=== PATIENT | female | born 1945 | race Caucasian/White ===

== ENCOUNTER 2018-05-29 17:03 | Inpatient (IN) | payer MEDICARE, BC ==
[~2018-05-29] VITALS: Ht 160 cm; Wt 96.5 kg
[2018-05-29] MEDS ORDERED: LORazepam 2 MG/ML VIAL (J2060) IV STA (17:49)
[2018-05-29 17:55] LABS: BASO # 0.1 10^3/uL (0.0-0.2); BASO % 0.3 % (0.0-1.0); EOS # 0.1 10^3/uL (0.0-0.50); EOS % 0.9 % (0.0-3.0); HEMATOCRIT 42.1 % (36.0-47.0); HEMOGLOBIN 13.5 g/dl (12.0-15.5); LYMPH # 2.4 10^3/uL (1.5-4.5); LYMPH % 15.5 % (24.0-44.0); MEAN CORPUSCULAR HEMOGLOBIN 31.5 pg (27.0-33.0); MEAN CORPUSCULAR HGB CONC 32.1 g/dl (32.0-36.5); MEAN CORPUSCULAR VOLUME 98.1 fl (80.0-96.0); MONO # 1.2 10^3/uL (0.0-0.8); MONO % 7.6 % (0.0-5.0); NEUTROPHILS # 11.6 10^3/uL (1.8-7.7); NEUTROPHILS % 74.5 % (36.0-66.0); PLATELET COUNT, AUTOMATED 343 10^3/uL (150-450); RED BLOOD COUNT 4.29 10^6/uL (4.00-5.40); WHITE BLOOD COUNT 15.6 10^3/uL (4.0-10.0)
[2018-05-29 18:10] LABS: ALBUMIN 2.6 GM/DL (3.2-5.2); BILIRUBIN,DIRECT 0.6 MG/DL (0.0-0.2); BILIRUBIN,TOTAL 0.9 MG/DL (0.2-1.0); CALCIUM LEVEL 8.7 MG/DL (8.8-10.2); CREATININE FOR GFR 1.36 MG/DL (0.55-1.30); GLOMERULAR FILTRATION RATE 40.7 (>39); MB/CK RELATIVE INDEX 5.63 (< OR =4); POTASSIUM SERUM 4.3 MEQ/L (3.5-5.1); TOTAL PROTEIN 6.2 GM/DL (6.4-8.2); TROPONIN I 1.18 NG/ML (< 0.10)
[2018-05-29] MEDS ORDERED: ACETAMINOPHEN 650 MG SUPP PR ONE (18:15)
[2018-05-29] MEDS ORDERED: CEFEPIME HCL 2 GM in D5W MINI-BAG PLUS 50 ML IV ONE (18:15)
[2018-05-29] MEDS ORDERED: PROPOFOL 1,000 MG in APPROPRIATE DILUENT 1 EA IV SCH (18:26)
[2018-05-29] MEDS ORDERED: PROPOFOL 1,000 MG/100 ML VIAL As Ordered ONE (18:27)
--- NOTE | 2018-05-29 18:33 | REP ---
Chest one-view HISTORY: Shortness of breath Comparison: None Diffuse parenchymal densities are present in the lungs. The cardiac silhouette is enlarged. The pulmonary vasculature is obscured by the parenchymal densities in the lungs. Impression: Bilateral infiltrates or edema. Electronically Signed by Cleveland Lee MD 05/29/2018 06:25 P
--- NOTE | 2018-05-29 18:36 | REP ---
Chest one-view HISTORY: Post intubation Comparison: 05:54 p.m. 05/29/2018 A diffuse parenchymal densities are present in the lungs. The cardiac silhouette is enlarged. The pulmonary vasculature is obscured by the density in the lungs. An ET tube is present. Impression: 1. Bilateral infiltrates or edema unchanged compared to the previous study. 2. The patient is status post ET tube placement. Electronically Signed by Cleveland Lee MD 05/29/2018 06:27 P
[2018-05-29] MEDS ORDERED: ETOMIDATE INJ 20MG/10ML VIAL IV STA (18:42)
[2018-05-29] MEDS ORDERED: SUCCINYLCHOLINE INJ 200 MG/10 ML VIAL (J0330) IV STA (18:42)
[2018-05-29] MEDS ORDERED: FUROSEMIDE 100 MG/10 ML VIAL (J1940) IV ONE (18:45)
[2018-05-29] MEDS ORDERED: MIDAZOLAM INJ 2 MG/2 ML VIAL (J2250) As Ordered ONE (18:53)
[2018-05-29] MEDS ORDERED: MIDAZOLAM INJ 2 MG/2 ML VIAL (J2250) IV STA (18:53)
[2018-05-29 18:56] LABS: ABG BASE EXCESS -10.4 (-2.0-2.0); ABG HCO3 15.3 MEQ/L (22.0-26.0); ABG PARTIAL PRESSURE CO2 33.8 mmHg (35.0-45.0); ABG PARTIAL PRESSURE O2 119.1 mmHg (75.0-100.0); ABG STANDARD HCO3 16.3 MEQ/L (22.0-26.0); ABG TOTAL CO2 16.4 MEQ/L (23.0-31.0); ABG pH (ARTERIAL) 7.275 UNITS (7.350-7.450)
[2018-05-29] MEDS ORDERED: MORPHINE 4 MG/ML 1ML VIAL/SYRINGE (J2270) IV PRN (19:15)
[2018-05-29] MEDS ORDERED: MIDAZOLAM INJ 2 MG/2 ML VIAL (J2250) IV PRN (19:15)
[2018-05-29] MEDS ORDERED: patient comments (19:38)
[2018-05-29 20:00] VITALS: BP 101/66
[2018-05-29] MEDS ORDERED: COMBIVENT RESPIMAT 100-20MCG INHALER 4GM INH SCH (20:00)
--- NOTE | 2018-05-29 20:31 | HPE ---
CRITICAL CARE HISTORY AND PHYSICAL DATE OF ADMISSION: 05/29/2018 I was called urgently to the emergency room to attend the bedside of this critically ill patient. CRITICAL CARE TIME: 1 hour and 12 minutes. HISTORY OF PRESENT ILLNESS: On arrival the patient was intubated, sedated on propofol. She had a sinus tachycardia with left bundle branch block, occasional bouts of heart block for approximately 4 to 5 beats. According to her she was having 5 days of coughing, respiratory symptoms, was taking R[place] and Tylenol at home to treat the cold. He states she has never seen physicians over the past few years. She states she has known there is been something wrong as far as her breathing. However, she did not see and did not want to see any physicians. The family is not really sure when the lower extremity swelling that is found on exam started. Other than that no other new symptoms. For some time she has been having urinary stress incontinence and she is an active smoker. On arrival to the emergency room she was febrile and hypoxic. She was unkempt with skin breakdown in the vaginal, buttock and sacral area. No deep ulcerations. She was initially awake, alert and oriented, but had such difficulty breathing that ultimately she had respiratory failure. Laboratory evaluation revealed a lactic acidosis. There was concern for probable infection. Chest x-ray shows significant bilateral dense infiltrates consistent with pneumonia. While in the emergency room there was some concern due to the severity of her systemic edema that she could actually be in heart failure, especially due to the fact that her troponin was slightly elevated and she has a BNP of 19,000. Therefore she was given Lasix at the time rather than IV fluids. Upon my arrival blood pressure was fairly soft 99/63. Heart rate was 130, sinus tachycardia with occasional complete heart block. The patient's family expressed wishes for her to be full resuscitation including CPR. HOME MEDICATOINS: She takes no chronic all medications. ALLERGIES: She has no drug allergies. VACCINATIONS: She has had no vaccinations. PAST SURGICAL HISTORY: Only surgery and medical history that the family is aware of is knee surgery 20 years ago. SOCIAL HISTORY; Lives with . Smoked for over 50 years. FAMILY HISTORY: Mother had lung and heart disease. REVIEW OF SYSTEMS: Unobtainable. PHYSICAL EXAMINATION: Temperature is 101.7, pulse of 118-113, blood pressure 99/63, mean arterial pressure 75, oxygen saturation is 96% on 0.30 FIO2, respiratory rate is 30. General: The patient is sedated on mechanical ventilation, has no purposeful movement at this time. However nursing tells me that she had significant purposeful movement and required the additional sedation. HEENT: Sclerae clear, anicteric. Pupils are approximately 5 mm, symmetric and reactive to light. Mucous membranes are moist. Tongue is midline. Endotracheal tube is in place. Neck: Supple. There is evidence of hirsutism, acanthosis nigricans. Lymph: No cervical, supraclavicular or axillary adenopathy. Cardiac: Distant S1, S2 without audible murmur, rub or gallop. She is tachycardiac. Point of maximal impulse (PMI) is difficult to palpate due to body habitus. There is significant peripheral pitting edema of the lower extremity up to the mid thigh. Bilateral lower extremity swelling is symmetric. Pulmonary: Decreased breath sounds throughout without rales, rhonchi or wheezes. No accessory muscle use. Fair chest expansion. Abdomen is obese, soft, nontender, nondistended. No hepatosplenomegaly. No masses or hernia. Extremities: Pitting edema as mentioned above. She has mottling of her lower extremities, mostly just to the level of the ankle. LABS: Arterial blood gas shows a pH of 7.27, pCO2 of 34, pAO2 of 119. EKG shows a left bundle branch block. Repeat urinalysis is pending. White blood cell count is 15.6, hemoglobin 13.5, platelet count of 343 with 75% neutrophilia. Sodium is 142, potassium 4.3, chloride is 104, bicarb of 17, creatinine of 1.36, calcium 8.7. D bili is 0.6, troponin 1.18, BNP of 19,000, D-dimer greater than 4000, albumin is 2.6. Chest x-ray consistent with multifocal pneumonia, bilateral dense infiltrates and cardiomegaly. AST is at 40, ALT of 28. Lactate is elevated 8.8. IMPRESSION: 1. Acute respiratory failure likely secondary to pneumonia. Will continue on mechanical ventilation. Obtain sputum culture to ensure adequate coverage. She has never been in the hospital, therefore will cover for "community-acquired pneumonia with cephalosporin and azithromycin. 2. Sepsis with lactic acidosis, likely septic shock with renal impairment. I actually believe she will likely need fluid despite her elevated BNP. She does have systemic edema. However, she also has some protein malnourishment. Will obtain echocardiogram as I suspect there is likely dysfunction, especially given the left bundle branch block. Elevated troponin likely secondary to acute shock and it is not clear whether or not she is having an acute WA or whether the troponin leak is simply secondary to sepsis and decreased oxygen delivery. 3. Protein malnourishment. 4. Acute renal injury. 5. Leukocytosis. 6.. DVT prophylaxis with heparin as she has obesity and renal impairment. 7. GI prophylaxis with Protonix. 8. Advance directives discussed with the patient's and two daughters. They wish everything to be done to attempt to save the patient's life.
[2018-05-29 21:00] VITALS: BP 102/46
[2018-05-29] MEDS ORDERED: AZITHROMYCIN INJ 500 MG, VIAL MATE ADAPTER 1 EACH in D5W 250 ML IV SCH (21:00)
--- NOTE | 2018-05-29 21:01 | RO ---
DATE OF PROCEDURE: 05/29/2018 PROCEDURE: Right triple lumen central venous catheter. PREPROCEDURE DIAGNOSIS: Hypotension. POSTPROCEDURE DIAGNOSIS: Hypotension. PROCEDURIST: Nathan Gordon DO CERTIFIED RECREATIONAL THERAPIST: None. ANESTHESIA: 1% lidocaine instilled subcutaneously. Verbal consent was obtained by the in the emergency room. Risks of bleeding, infection, pneumothorax and injury to surrounding structures was discussed. He states that he understands the risks and wants to proceed. DESCRIPTION OF PROCEDURE After informed consent was obtained the patient was identified with two patient identifiers confirming correct site, correct procedure. Right IJ was then prepped and draped in a sterile manner with chlorhexidine and full barrier sterile precautions. The right IJ was then identified under ultrasound. 1% lidocaine was instilled subcutaneously above the IJ. Holt syringe was then introduced into the IJ with venous blood return of the first pass. Wire was fed through the needle and the needle was removed. Deandre in the skin was made and the triple-lumen catheter was placed via modified Seldinger technique. The wire was removed and all three ports returned venous blood flow and flushed easily. The catheter was sutured in at 15 cm. A sterile impregnated dressing was placed over the site. Postprocedure chest x-ray performed shows adequate placement without evidence of pneumothorax. No observed complications.
[2018-05-29] MEDS: CHLORHEXIDINE GLUCONATE 0.12 % 15ML UDC (PERIDEX ORAL RINSE) MT SCH (21:17)
[2018-05-29] MEDS: PROPOFOL 1,000 MG in APPROPRIATE DILUENT 1 EA IV SCH (21:18)
[2018-05-29] MEDS ORDERED: NOREPINEPHRINE 4 MG/4 ML AMP As Ordered ONE (21:53)
[2018-05-29 22:00] VITALS: BP 74/51
[2018-05-29] MEDS ORDERED: HEPARIN SOD (PORCINE) 5000 UNITS/ML VIAL SC SCH (22:00)
[2018-05-29] MEDS ORDERED: NOREPINEPHRINE BITARTRATE 8 MG in D5W 492 ML IV SCH (22:00)
--- NOTE | 2018-05-29 22:02 | REP ---
Chest one-view HISTORY: Respiratory failure Comparison: 15 p.m. 05/29/2018 Patchy parenchymal densities are present in the lungs greater on the right than on the left. A small left pleural effusion is present. The cardiac silhouette is enlarged. The pulmonary vasculature is . By the density in the lungs. An ET tube and NG tube are present. Impression: 1. Bilateral infiltrates or edema unchanged compared to the previous study. 2. Cardiomegaly. Electronically Signed by Cleveland Lee MD 05/29/2018 09:53 P
[2018-05-29 22:16] LABS: TROPONIN I 3.18 NG/ML (< 0.10)
[2018-05-29] MEDS ORDERED: HEPARIN DRIP 25,000 UNITS in APPROPRIATE DILUENT 1 EA IV SCH (22:23)
[2018-05-29] MEDS ORDERED: NS 1,000 ML IV ONE (22:30)
[2018-05-29] MEDS ORDERED: HEPARIN SOD (PORCINE) 5000 UNITS/ML VIAL IV PRN (22:30)
[2018-05-29] MEDS ORDERED: HEPARIN SOD (PORCINE) 5000 UNITS/ML VIAL IV ONE (22:30)
[2018-05-29 23:00] VITALS: BP 99/68
[2018-05-29] MEDS: IPRATROPIUM 0.5MG/ALBUTEROL 2.5MG INH SOL UD 3ML (DUONEB)(J7620) NEB SCH (23:50)
[2018-05-29 23:55] VITALS: O2SAT 99
[2018-05-30] VITALS (16 sets, daily range): BP systolic 88–110; BP diastolic 57–66; O2SAT 98
[2018-05-30 05:10] LABS: HEMOGLOBIN 12.3 g/dl (12.0-15.5); MEAN CORPUSCULAR HEMOGLOBIN 31.4 pg (27.0-33.0); MEAN CORPUSCULAR HGB CONC 32.4 g/dl (32.0-36.5); MEAN CORPUSCULAR VOLUME 96.9 fl (80.0-96.0); RED BLOOD COUNT 3.92 10^6/uL (4.00-5.40); WHITE BLOOD COUNT 14.5 10^3/uL (4.0-10.0)
[2018-05-30 05:19] LABS: PLATELET COUNT, AUTOMATED 218 10^3/uL (150-450)
[2018-05-30 05:32] LABS: ALBUMIN 2.4 GM/DL (3.2-5.2); CALCIUM LEVEL 8.2 MG/DL (8.8-10.2); CREATININE FOR GFR 1.72 MG/DL (0.55-1.30); PHOSPHORUS LEVEL 4.8 MG/DL (2.5-4.9); POTASSIUM SERUM 4.3 MEQ/L (3.5-5.1)
[2018-05-30 05:47] LABS: ABG BASE EXCESS -2.5 (-2.0-2.0); ABG O2 SATURATION 99.4 % (95.0-99.0); ABG PARTIAL PRESSURE CO2 28.6 mmHg (35.0-45.0); ABG PARTIAL PRESSURE O2 157.7 mmHg (75.0-100.0); ABG STANDARD HCO3 22.4 MEQ/L (22.0-26.0); ABG TOTAL CO2 20.9 MEQ/L (23.0-31.0); ABG pH (ARTERIAL) 7.463 UNITS (7.350-7.450)
[2018-05-30] MEDS ORDERED: cefTRIAXone SOD 2 GM in D5W 50 ML IV SCH (06:00)
[2018-05-30] MEDS: IPRATROPIUM 0.5MG/ALBUTEROL 2.5MG INH SOL UD 3ML (DUONEB)(J7620) NEB SCH ×2 (07:31→11:43)
--- NOTE | 2018-05-30 08:02 | ECGEPIP ---
Stationary ECG Study [facility] - ED Test Date: 2018-05-29 Pat Name: SULMA FLETCHER Department: Room: - Gender: F Neuroradiologist: roxi : 1945 Requested By: Akbar Kelly Order Number: [id number] Reading MD: Akbar Reagan Measurements Intervals [place] Rate: 129 P: -14 CO: 113 QRS: -30 QRSD: 161 T: 125 QT: 352 QTc: 516 Interpretive Statements SINUS TACHYCARDIA WITH SHORT CO INTERVAL LEFT BUNDLE BRANCH BLOCK NO PRIORS FOR COMPARISON Electronically Signed On 05-30-2018 8:01:58 EST by Akbar Reagan
--- NOTE | 2018-05-30 08:16 | REP ---
Chest one-view HISTORY: Respiratory failure Comparison : 05/29/2018 Patchy densities are present in the lungs that is slightly decreased compared to the previous study. The cardiac silhouette is enlarged. The pulmonary vasculature is normal in appearance. An ET tube , NG tube and central line are present. Impression: Bilateral infiltrates or edema decreased compared to the previous study. Electronically Signed by Cleveland Lee MD 05/30/2018 08:07 A
[2018-05-30] MEDS ORDERED: NYSTATIN 100,000 UNITS/GM TOPICAL PWD 15 GM TOP SCH (09:00)
[2018-05-30] MEDS ORDERED: ASPIRIN 325 MG TAB NG SCH (09:00)
[2018-05-30] MEDS ORDERED: PANTOPRAZOLE 40MG INJ (PROTONIX) (C9113) IV SCH (09:00)
[2018-05-30] MEDS: CHLORHEXIDINE GLUCONATE 0.12 % 15ML UDC (PERIDEX ORAL RINSE) MT SCH (09:11)
[2018-05-30 10:51] LABS: TROPONIN I 14.5 NG/ML (< 0.10)
[2018-05-30] MEDS ORDERED: SUCCINYLCHOLINE 100 MG/5 ML SYRINGE (J0330) ONE (10:53)
[2018-05-30] MEDS ORDERED: ETOMIDATE INJ 20MG/10ML VIAL ONE (10:53)
[2018-05-30] MEDS: PROPOFOL 1,000 MG in APPROPRIATE DILUENT 1 EA IV SCH (11:01)
[2018-05-30 11:05] LABS: MAGNESIUM LEVEL 2.2 MG/DL (1.8-2.4)
--- NOTE | 2018-05-30 11:12 | CCN ---
DATE OF SERVICE: 05/30/2018 Critical care time was 40 minutes, this excludes all procedures. Overnight the patient did have short nonsustained V-tach. Troponin was elevated to 3. Troponin from this morning still pending. It is not clear whether the patient has acute coronary syndrome simply from coronary artery disease are actually has pneumonia that precipitated hypoxia and induced myocardial ischemia. Therefore, she is covered for the possibility of acute coronary syndrome with heparin. She has also had intermittent mottling of the right lower extremity, decreased pulse. Heparin is being administered at this point in time. I do not think she has a surgical candidate, therefore no surgical consult has been performed, and heparin has been prescribed as a potential treatment. Chest x-ray shows some decrease in infiltrates. Sputum culture is pending. The patient is on mechanical ventilation and is at bedside and updated. PHYSICAL EXAMINATION: Temperature is 98.0, pulse is 82, blood pressure is 88/58 with a mean arterial pressure of 68, oxygen saturations 98% on 0.30 FiO2. HEENT: Sclerae clear and anicteric. Pupils equal and reactive to light. Mucous membranes are moist. Tongue is midline. Central lines in place. CVP has not yet been measured this morning. LYMPH: No cervical, supraclavicular or axillary adenopathy. PULMONARY: Decreased breath sounds throughout. There is a prolonged exhalation phase. No accessory muscle use currently. No expiratory wheeze. No dullness to percussion. CARDIAC: Tachycardic S1-S2 without audible murmur, rub or gallop. PMI is difficult to palpate due to body habitus. There is pitting edema of the lower extremities, left greater than right. There is no palpable pulse on the right foot with minimal mottling, but no significant cyanosis. Radial pulses are symmetric. ABDOMEN: Obese, soft, nontender, nondistended. No hepatosplenomegaly, masses or hernia. SKIN: Significant intertrigonal, perineal and buttock candidiasis. There is an open sore that is approximately 25 cm. There does not appear to be any significant induration around the superficial lesion. There is no evidence of cellulitis. There is no evidence of extension to bone. NEUROLOGIC: The patient does awake on mechanical ventilation, has some appropriate movements, attempting to remove the tube, is moving all extremities. Exam is limited due to the fact that she is sedated on mechanical ventilation. Chest x-ray again shows diffuse pulmonary infiltrates, somewhat decreased. White blood cell count is down to 14.5, hemoglobin 12.3, platelet count of 218. Sodium is 142, potassium 4.3, chloride is 108, BUN is 34, creatinine is 1.72, lactate of 2.2, troponin is up to 3.18, pH of 7.46, pCO2 is 29, pAO2 is 158. IMPRESSION: 1. Acute respiratory failure. Unclear if this was precipitated by infection or cardiac disease. We are treating for both. I started heparin overnight for the possibility of acute coronary syndrome monitoring for arrhythmia. The patient did actually have a few episodes of complete heart block when she was initially admitted that lasted for maximum 5 seconds. She will likely need cardiac workup as an outpatient. She may even require cardiac catheterization prior to discharge. Transthoracic echocardiogram ordered. Today monitoring for V-tach. Will check magnesium. 2. Pneumonia. Treating for pneumonia with antibiotics. The patient may have also had urine infection. Awaiting results of microbiology. Covering with typical antibiotics for community acquired pneumonia as the patient has never been hospitalized. 3. Renal impairment. The patient has good urine output this morning. Creatinine is slightly elevated compared to yesterday to 1.72. The patient is at risk for renal failure. 4. Lactic acidosis. Lactate trending down to 2.2. 5. Candidiasis. Nystatin prescribed. 6. Gastrointestinal (GI) prophylaxis on Protonix. 7. Deep vein thrombosis (DVT) prophylaxis on heparin drip. The patient remains critically ill, has a high risk of mortality, especially given underlying cardiac dysfunction and arrhythmia. She will require continued ICU care and frequent intervention.
--- NOTE | 2018-05-30 13:37 | ECHO ---
DATE OF PROCEDURE: 05/30/2018 REFERRING PROVIDER: Dr. Nathan Gordon PATIENT LOCATION: Room 3205 REASON FOR ECHOCARDIOGRAM: Respiratory failure, acute myocardial infarction. 2D MEASUREMENTS: IVS: 1.0 cm LV: 5.4 cm LVPW: 1.1 cm LA: 4.0 cm Aorta: 2.9 cm IVC: 2.3 cm DOPPLER MEASUREMENTS: Peak velocity across the aortic valve: 3.2 m/s Peak velocity across the LVOT: 0.68 m/s Mitral E: 1.1 Mitral A: 0.61 with a ratio of 1.8 Maximum tricuspid valve velocity: 2.6 m/s 2D COMMENTS: 1. Normal left ventricular size and wall thickness, but with a markedly depressed global left ventricular systolic function. The anterior septum appeared to be dyskinetic. The estimated global left ventricular systolic ejection fraction is 30%. 2. Mildly enlarged left atrium. Normal right atrium and right ventricle. 3. The atrial septum appeared to be normal without evidence of defect or shunt. 4. Normal aortic root. 5. No pericardial effusion seen. 6. Moderately calcified aortic valve, leaflet excursion appeared to be restricted. Mildly calcified mitral annulus with normal anterior mitral valve leaflet motion. Normal tricuspid valve and pulmonic valve. The proximal pulmonary artery branches were not well visualized. 7. The inferior vena cava was mildly enlarged, central venous pressure is most likely elevated. Doppler, it detects mild aortic regurgitation, mild mitral regurgitation, and mild tricuspid regurgitation. The calculated pulmonary artery systolic pressure varied between 30 to 40 mmHg. The mitral inflow pattern typically appeared to be restrictive in nature. IMPRESSION: 1. Moderately severe global left ventricular systolic dysfunction with regional wall motion abnormalities. There were some features of left ventricular diastolic dysfunction, a restrictive mitral inflow pattern was noted. 2. Aortic valve sclerosis with mild aortic regurgitation and moderate aortic stenosis with a maximum velocity of 3.2 mmHg and a peak gradient of 41 mmHg. The mean gradient across the aortic valve was 24 mmHg. Could not rule out more severe aortic stenosis in view of the markedly depressed global left ventricular systolic function. 3. Mitral annulus calcification with mildly enlarged left atrium, mild mitral regurgitation, and minimal to mild calcific mitral stenosis. 4. Mild tricuspid regurgitation with mild pulmonary hypertension. 5 There were some features of elevated central venous pressure, the inferior vena cava was mildly dilated. Edited 05/30/2018 @ 1340 [facility]
[2018-05-30] MEDS ORDERED: CLOPIDOGREL 300 MG TAB (PLAVIX) PO STA (13:40)
[2018-05-30] MEDS ORDERED: ASPIRIN 81 MG CHEW TABLET PO ONE (13:45)
[2018-05-30] MEDS ORDERED: ATORVASTATIN 20 MG TAB PO ONE ×2 (13:45→14:00)
[2018-05-30] MEDS ORDERED: ASPIRIN 81 MG CHEW TABLET As Ordered ONE (13:51)
--- NOTE | 2018-05-30 15:21 | CR ---
DATE OF CONSULTATION: 05/30/2018 REFERRING PROVIDER: Dr. Nathan Gordon DO PRIMARY PHYSICIAN: Outside of hospital, none. REASON FOR CONSULTATION: Acute myocardial infarction. HISTORY OF PRESENT ILLNESS: 73-year-old woman with a history of smoking came to the hospital yesterday in the early evening hours because of sudden onset of increased shortness of breath that was initially thought to be related to a panic attack. The called the ambulance and the patient was brought to the emergency room for further evaluation. She was found to be in heart failure, intubated and admitted to the intensive care unit (ICU) for further management and monitoring the fishing tool supervisor long term. Her initial serum troponin was 1.18 and on repeating it yesterday evening it was 3.18 and this morning, 14.5. Upon arrival in the ER, her blood pressure was reported to be 99 mmHg systolic with a pulse of 130 beats per minute, but sinus tachycardia and her EKG revealed a right bundle branch block. Her serum proBNP was 19,737. BUN and creatinine were 25 and 1.36, respectively, with a serum lactic acid initially of 8.8, then decreased to 2.2. A cardiology consult was called in view of the abnormal serum troponin consistent with acute myocardial infarction, congestive heart failure (CHF), and newly discovered left bundle branch block. Chest x-ray upon admission revealed findings consistent with probable pneumonia and she was initially febrile, but upon reviewing the chest x-ray today, there was no significant infiltrates and she has been afebrile in the hospital. When I saw Mrs. Keri Reynolds in the ICU, she was sedated and intubated, was at the bedside. Upon arrival yesterday, she was alert and awake and oriented. According to the , he thinks that his was hiding her symptoms. It has been difficult lately for her to do her regular activities except going to the casino, which she likes to do. There is no report of chest pain. He could not tell whether she had pedal edema or not, until this week. Prior to the hospitalization, about 4-5 days ago, she was coughing and other members of the family also were coughing, and they thought she was having some form of bronchitis. There is no report of orthopnea or paroxysmal nocturnal dyspnea (PND), intermittent claudication, palpitations. There is no report of bleeding. There is no focal manifestations. There is no nausea, vomiting, diarrhea, melena or hematemesis. She does have a history of urinary incontinence. Last night, she was for a brief period of time on norepinephrine. She also was started on IV antibiotics. PAST MEDICAL HISTORY: She has a past medical history positive for urinary incontinence, arthritis. There is no known history of hypertension, hyperlipidemia, diabetes mellitus, prior history of chronic kidney disease, lung disease, liver disease, significant valvular heart disease, atrial fibrillation, cardiomyopathy, sudden cardiac . PAST SURGICAL HISTORY: Positive for knee surgery. Otherwise, unremarkable. FAMILY HISTORY: Positive for heart disease in her mother. SOCIAL HISTORY: Patient lives currently with her . According to the , she has not been smoking lately. She does have a long history of smoking for about 50 years. There is no EtOH abuse or illicit drugs. ALLERGIES: No known drug allergies. ADVANCE DIRECTIVES: The patient is a FULL CODE. MEDICATIONS: Cefuroxime 2 grams IV every 24 hours starting today and yesterday, 05/29/2018, the patient had received cefepime 2 grams IV, one dose. She is also on IV drip heparin. Propofol as directed. Zithromax 500 mg IV every 24 hours. Tylenol 650 mg one dose given. DuoNeb as needed. Yesterday she received Lasix 80 mg one dose. She is also on pantoprazole 40 mg IV daily, morphine sulfate as directed. PHYSICAL EXAMINATION: Patient is currently intubated and sedated. Her most recent vital signs reveal a blood pressure of 94/57 with a pulse of 83, respirations 20, and maximum temperature is 98 degrees Fahrenheit with an oxygen saturation of 98% on 3 liters nasal cannula. Examination of the head, atraumatic. Neck is supple and I could not appreciate any jugular venous distention (JVD) or carotid bruits. The lungs did not reveal any wheezing or crackles anteriorly. The heart examination revealed irregular heart sounds with S3 gallops. The PMI is displaced inferiorly and laterally. There is systolic murmur grade 2-3/6 over the precordium, louder at the base of the heart/aortic valve area with some radiation to the neck. Abdomen is soft and nontender. Extremities revealed +1 bilateral lower leg and pedal edema. Peripheral pulses, dorsalis pedis was +2, palpated on the left lower extremity. On the right lower extremity, the dorsalis pedis and anterior tibialis were not palpated, and the skin is cold on touch. I tried Doppler to no avail. Neurological examination was limited. LABS: BMP done today revealed a sodium of 142, potassium 4.3, chloride 108, CO2 22, BUN 34, creatinine 1.72, GFR 31.0, fasting glucose 167, and calcium 8.2. On admission, BUN and creatinine were 25 and 1.36 respectively. Serum troponin today at 5 o'clock in the morning was 14.50. Liver enzymes on admission revealed a total bilirubin of 0.9, direct bilirubin 0.6, AST 40, ALT 28, alkaline phosphatase 108, total protein 6.2, albumin 2.6. CBC done today revealed a WBC of 14.5, hemoglobin 12.3, hematocrit 38.7, and platelets 218,000. PTT today at 5 o'clock in the morning was 189.5. Serum D-Dimer on admission was greater than 4000. Urinalysis revealed blood, nitrates, leukocyte esterase, WBCs. ABG this morning revealed a pH of 7.46, pCO2 28.6, pO2 157.7. On admission pH was 7.27. Chest x-ray on admission revealed bilateral infiltrates and edema, cardiomegaly. Chest x-ray this morning did not reveal any significant changes, but decreased edema. Electrocardiogram on admission revealed sinus tachycardia at about 130 beats per minute, left bundle branch block and STT abnormalities. No prior for comparison. Echocardiogram done today revealed an LVEF estimated at 30% with moderate to severe aortic stenosis. IMPRESSION: 1. Acute myocardial infarction. 2. Congestive heart failure (CHF), systolic in nature, probably acute on chronic. 3. Aortic stenosis, moderately severe. 4. Abnormal EKG, left bundle branch block, newly diagnosed. 5. Chronic kidney disease. 6. Former smoker. 7. Probably pneumonia. 8. Respiratory failure secondary to above, multifactorial. The case was discussed with fishing tool supervisor, Dr. Nathan Gordon, and the immediate plan is to proceed with transferring the patient for a higher level of care where she can have a cardiac catheterization to assess her coronary anatomy and reassess her underlying aortic stenosis. The case was discussed with the invasive team and the transfer center at [facility] and the patient was accepted and she will be transferred as soon as possible. She is currently stable enough to be transferred. She will be transferred on her current medications and we have added aspirin, Plavix, and a statin. She is not a candidate for an SERGIO inhibitor or an ARB at this present time because her blood pressure is soft and she also has some deterioration in her kidney function and she might need a cardiac catheterization. We will also hold on any beta matrine at this present time because of her blood pressure. She is on IV heparin. The case was discussed with the and he is in agreement. It was a pleasure to participate in the care of Mrs. Keri Reynolds for her underlying cardiac condition. Once again, the case was discussed with the fishing tool supervisor and the nursing staff. She will be seen as an outpatient upon discharge. She will need a primary physician.
--- NOTE | 2018-05-30 17:05 | DSES ---
DATE OF ADMISSION: 05/29/2018 DATE OF DISCHARGE: 05/30/2018 Keri was admitted last night with acute of respiratory failure. After being monitored it became clear that she was having acute coronary syndrome; therefore, cardiology was consulted, and the patient was transferred to [facility] under the care of Dr. Ritter for possible cardiac catheterization. During her stay here she had an echocardiogram. It is not yet reported back, however, suggests a very low ejection fraction and probable significant aortic stenosis, according to the hair colorist verbal statements. She was being treated for the possibility of infection. She has remained on antibiotics was she was here. She was transported on mechanical ventilation with heparin drip. She did have an episode of ventricular tachycardia and a short-lived episode of complete atrioventricular (AV) block. IMPRESSION: 1. Acute respiratory failure, initially thought to be secondary to pneumonia and infection; however, the patient declared herself as having acute coronary syndrome. 2. Acute coronary syndrome. 3. Probable pneumonia with underlying sepsis, lactic acidosis. 4. Protein malnourishment. 5. Acute renal injury. 6. Leukocytosis. 7. Probable aortic stenosis. 8. Nicotine dependence. DISCHARGE MEDICATIONS: The patient was sent on propofol and heparin running in ambulance. DISCHARGE MEDICATIONS: - propofol - chlorhexidine swab - as-needed Versed - as-needed morphine - DuoNeb - heparin drip - Protonix 40 mg intravenous (IV) - ceftriaxone - azithromycin - Levophed as needed to maintain systolic blood pressure over 65; however, was not requiring is at the time of transfer [facility]
[2018-06-01 14:10] LABS: BODY FLUID CULTURE Not Indicated (.); LEGIONELLA ANTIGEN URINE Negative (Negative); ORGANISM ID Not indicated. (.); SPECIMEN SOURCE Urine (.); URINE STREP PNEUMONIAE ANTIGEN Negative (Negative)
== END 2018-05-30 14:19 | disposition short-term general hospital (02) | DRG 208 ==
LOC: EDBD 17:03 → M ED 17:03 → M ED INP 19:02 → UNDOADMIN 19:04 → M ED 19:47 → M ICU 19:55 → M ED INP 19:55 → M ICU 19:56 → UNDODISIN 05-30 14:19
PROVIDERS: ADMIT Internal Medicine Pulmonary Disease; ATTEND Internal Medicine Pulmonary Disease
PROC: 5A1935Z Respiratory Ventilation, Less than 24 Consecutive Hours (ICD-10-PCS; principal; 2018-05-29)
PROC: 02HV33Z Insertion of Infusion Device into Superior Vena Cava, Percutaneous Approach (ICD-10-PCS; 2018-05-29)
DX: J96.91 Respiratory failure, unspecified with hypoxia (principal); J18.9 Pneumonia, unspecified organism; A41.9 Sepsis, unspecified organism; I21.9 Acute myocardial infarction, unspecified; I50.23 Acute on chronic systolic (congestive) heart failure; E46 Unspecified protein-calorie malnutrition; N17.9 Acute kidney failure, unspecified; E87.2 Acidosis; I13.0 Hypertensive heart and chronic kidney disease with heart failure and stage 1 through stage 4 chronic kidney disease, or unspecified chronic kidney disease; F17.200 Nicotine dependence, unspecified, uncomplicated; I35.0 Nonrheumatic aortic (valve) stenosis; I44.7 Left bundle-branch block, unspecified; B37.2 Candidiasis of skin and nail; M19.90 Unspecified osteoarthritis, unspecified site; I48.91 Unspecified atrial fibrillation; N18.9 Chronic kidney disease, unspecified